=== PATIENT | male | born 1955 | race Two or more races ===

== ENCOUNTER 2020-02-02 20:13 | Inpatient (IN) | payer MEDICARE, OTHER ==
[~2020-02-02] VITALS: Ht 165.1 cm; Wt 55.5 kg
--- NOTE | 2020-02-02 20:15 | NUR ---
RECEIVED PT DIRECT FROM [place] [facility]IA [employer]. UNDER THE CARE OF DR. SIN. DX: COVID PNA, NAUSEA/ VOMITTING. PT IN NO ACUTE DISTRESS. SENIOR CARE ASSESSMENT DONE. PT ALERT , AWAKE , AN ORIENTEDX1. PT RESPOND TO HIS NAME ONLY. OBSERVED PT HAD DOUBLE LUMEN PERMACATH ON HIS RIGHT UPPER CHEST. ADMISSION PROCESS AND CARE PLAN INITIATED. SAFETY AND COMFORT PROVIDED. WILL CONTINUE TO MONITOR.
[2020-02-02 20:30] VITALS: BP 150/87
[2020-02-02] MEDS ORDERED: ONDANSETRON 4 MG/2 ML VIAL IV PRN (21:15)
[2020-02-02] MEDS ORDERED: ACETAMINOPHEN 325 MG TABLET PO PRN (21:15)
[2020-02-02] MEDS ORDERED: ACETAMINOPHEN 650 MG SUPP.RECT RC PRN (21:15)
[2020-02-02] MEDS ORDERED: MORPHINE SULFATE 2 MG/1 ML DISP.SYRIN IV PRN (21:15)
[2020-02-02] MEDS ORDERED: METO-295 PO (21:45)
[2020-02-02] MEDS ORDERED: ATOR80TA PO (21:45)
[2020-02-02] MEDS ORDERED: ASPI-612 PO (21:45)
[2020-02-02] MEDS ORDERED: HYDR100T27 PO (21:45)
[2020-02-02] MEDS ORDERED: NIFE-60 PO (21:45)
[2020-02-02] MEDS ORDERED: INSU100I45 SQ (21:45)
[2020-02-02] MEDS ORDERED: PANT40TA2 PO (21:45)
[2020-02-02] MEDS ORDERED: CALC667T2 PO (21:45)
[2020-02-02] MEDS ORDERED: BACL10TA PO (21:45)
[2020-02-02] MEDS ORDERED: CLON0.1T PO (21:45)
[2020-02-02] MEDS ORDERED: CHOL10002 PO (21:45)
[2020-02-02] MEDS ORDERED: CARV6.252 PO (21:45)
--- NOTE | 2020-02-02 22:15 | NUR ---
DAUGHTER OF PT CALLED TO ASK FOR UPDATE OF HIS FATHER. GAVE UPDATES SINCE DAUGHTER IS THE PERSON TO NOTIFY.
[2020-02-03] VITALS: BP 152/84
--- NOTE | 2020-02-03 01:09 | NUR ---
NOTIFY DR. BERMUDEZ REGARDING TROPONIN RESULT OF .114. NO NEW ORDERS. PT ASYMPTOMATIC. V/S WNL.
[2020-02-03 04:00] VITALS: BP 158/84
--- NOTE | 2020-02-03 06:13 | NUR ---
PT SLEPT COMFORTABLY. PT IN NO ACUTE DISTRESS. NO NAUSEA AND VOMITTING NOTED. PRESCRIBED MEDICATION GIVEN AND PT TOLERATED IT WELL. PT STILL CONFUSED BUT PLEASANT. IV INTACT. SAFETY AND COMFORT PROVIDED. WILL ENDORSE TO INCOMING NURSE FOR CONTINUITY OF CARE.
[2020-02-03 07:51] LABS: BASOPHILS # (AUTO) 0.1 K/uL (0.0-8.0); BASOPHILS % (AUTO) 0.6 % (0.0-2.0); EOSINOPHILS % (AUTO) 0.2 % (0.0-7.0); HEMATOCRIT 42.1 % (36.7-47.1); HEMOGLOBIN 14.6 g/dL (12.5-16.3); LYMPHOCYTES # (AUTO) 0.9 K/uL (20.0-40.0); LYMPHOCYTES % (AUTO) 9.3 % (20.5-51.5); MEAN CORPUSCULAR HEMOGLOBIN 32.7 uug (23.8-33.4); MEAN CORPUSCULAR HGB CONC 35 g/dL (32.5-36.3); MEAN CORPUSCULAR VOLUME 94.7 fL (73.0-96.2); MONOCYTES # (AUTO) 0.8 K/uL (2.0-10.0); MONOCYTES % (AUTO) 8.3 % (0.0-11.0); NEUTROPHILS # (AUTO) 8.3 K/uL (1.8-8.9); NEUTROPHILS % (AUTO) 81.6 % (38.5-71.5); PLATELET COUNT (AUTO) 483 K/uL (152-348); RED BLOOD CELL COUNT(AUTO) 4.45 MIL/uL (4.06-5.63); WHITE BLOOD COUNT (AUTO) 10.2 K/uL (3.6-10.2)
--- NOTE | 2020-02-03 08:00 | NUR ---
received patient in bed, alert x1, able to follow some commands. No signs of distress noted. On Room Air saturating 98%. NO SOB. No complain of Pain or discomfort. kept clean and comfortable. Will continue to monitor.
[2020-02-03] MEDS ORDERED: BACLOFEN 10 MG TABLET PO PRN (08:15)
[2020-02-03 08:22] LABS: BILIRUBIN,TOTAL 0.4 mg/dL (0.2-1.0); MAGNESIUM 2.8 mg/dL (1.8-2.4); PHOSPHOROUS 5.6 mg/dL (2.5-4.9); TOTAL PROTEIN, SERUM 7.9 g/dL (6.4-8.2)
[2020-02-03 08:24] LABS: CREATININE 13.2 mg/dL (0.6-1.3); POTASSIUM 6.9 mmol/L (3.5-5.1)
--- NOTE | 2020-02-03 08:25 | NUR ---
Dr. Adhikari made aware of Abnormal labs: K 6.9, BUN 98, Cr 13.2, Troponin 0.560.
[2020-02-03] MEDS: CHOLECALCIFEROL 1,000 UNIT TABLET PO SCH (08:52)
[2020-02-03] MEDS ORDERED: hydrALAZINE HCL 50 MG TABLET PO SCH (09:00)
[2020-02-03] MEDS ORDERED: PANTOPRAZOLE SODIUM 40 MG VIAL IV SCH (09:00)
[2020-02-03 09:11] LABS: THYROID STIMULATING HORMONE 2.398 mIU/mL (0.358-3.740)
[2020-02-03] MEDS: CARVEDILOL 6.25 MG TABLET PO SCH ×2 (09:12→21:15)
[2020-02-03] MEDS: ASPIRIN EC 325 MG TABLET.DR PO SCH (09:37)
[2020-02-03] MEDS: CLONIDINE HCL 0.1 MG TABLET PO PRN (09:45)
[2020-02-03 10:00] VITALS: BP 149/83
[2020-02-03 10:38] LABS: ABG HCO3 21.5 mmol/L; ABG PCO2 32.9 mmHg (35.0-45.0); ABG PH 7.433 (7.350-7.450); ABG PO2 86.9 mmHg (75.0-100.0); ABG SITE LEFT RADIAL; ABG TOTAL HEMOGLOBIN 13.3 G/dL (13.5-18.0); COHb 1.2 % (0.5-1.5); MetHb 0.3 % (0.0-1.5); O2Hb 95.1 % (94.0-97.0); VENT MODE Room Air
[2020-02-03] MEDS: CALCIUM ACETATE 667 MG CAPSULE PO SCH ×2 (11:05→17:01)
[2020-02-03 11:47] VITALS: BP 175/88
--- NOTE | 2020-02-03 12:40 | NUR ---
Dr. Adhikari made aware of Troponin 0.564.
--- NOTE | 2020-02-03 14:00 | NUR ---
HD Nurse on patients Room, ongoing Dialysis.
[2020-02-03 14:37] VITALS: BP 138/55
--- NOTE | 2020-02-03 16:30 | NUR ---
Patient's Blood Pressure drops to 97/60, No output was taken. Dr. samaniego is aware.
--- NOTE | 2020-02-03 17:00 | NUR ---
current Vital signs 149/51 P 81 R 18 temp 97.9F sat 98% on Room Air.
[2020-02-03] MEDS ORDERED: CLONIDINE-TTS 1 PATCH TD SCH (18:00)
--- NOTE | 2020-02-03 18:02 | NUR ---
Seen by Dr. cooley, patient in bed, able to answer simple question. No signs of distress noted. sat 98% on Room Air, No SOB. No complain of Pain or discomfort. All due medications given as ordered. Kept clean and comfortable. Will endorse to Oncoming Nurse.
--- NOTE | 2020-02-03 19:30 | NUR ---
patient received in bed. aaox2. unable to verbalize needs. v/s stable except for BP. will administer coreg due at 2100. no other s/s of acute distress. fall precautions in place. on RA. will continue to monitor and assess.
[2020-02-03 21:12] VITALS: BP 198/98
[2020-02-04] MEDS: CLONIDINE HCL 0.1 MG TABLET PO PRN ×2 (00:11→23:07)
--- NOTE | 2020-02-04 00:30 | NUR ---
rechecked BP and at 190/85. administered clonidine. will continue to monitor and assess.
--- NOTE | 2020-02-04 01:43 | NUR ---
rechecked BP. WNL. 145/85
[2020-02-04 05:28] VITALS: BP 110/53
--- NOTE | 2020-02-04 05:37 | NUR ---
patient resting comfortably. v/s stable BP WNL at this time. verbal but unable to verbalize needs clearly, patient is confused. no acute distress noted. afebrile. PIV intact and patent. all medications administered without any ASE. fall precautions in place and call light within reach. on RA. will continue to monitor and assess until morning endorsement.
--- NOTE | 2020-02-04 08:00 | NUR ---
Received patient in bed, awake. Alert x 2, No signs of distress noted. No SOB. sat 100% on Room Air. No complain of pain or discomfort. kept clean and comfortable. All needs attended. Will continue to monitor.
[2020-02-04] MEDS: CALCIUM ACETATE 667 MG CAPSULE PO SCH ×3 (08:09→17:13)
[2020-02-04] MEDS: ASPIRIN EC 325 MG TABLET.DR PO SCH (08:10)
[2020-02-04] MEDS: CHOLECALCIFEROL 1,000 UNIT TABLET PO SCH (08:10)
[2020-02-04] MEDS: CARVEDILOL 6.25 MG TABLET PO SCH ×2 (09:00→21:24)
[2020-02-04 09:15] VITALS: BP 105/66
[2020-02-04 10:14] LABS: BASOPHILS # (AUTO) 0.1 K/uL (0.0-8.0); BASOPHILS % (AUTO) 0.9 % (0.0-2.0); EOSINOPHILS # (AUTO) 0.1 K/uL (0.0-0.7); EOSINOPHILS % (AUTO) 1.2 % (0.0-7.0); HEMOGLOBIN 11.3 g/dL (12.5-16.3); LYMPHOCYTES # (AUTO) 0.9 K/uL (20.0-40.0); LYMPHOCYTES % (AUTO) 10.3 % (20.5-51.5); MEAN CORPUSCULAR HEMOGLOBIN 32.3 uug (23.8-33.4); MEAN CORPUSCULAR HGB CONC 34 g/dL (32.5-36.3); MONOCYTES # (AUTO) 0.9 K/uL (2.0-10.0); MONOCYTES % (AUTO) 10.5 % (0.0-11.0); NEUTROPHILS # (AUTO) 6.6 K/uL (1.8-8.9); NEUTROPHILS % (AUTO) 77.1 % (38.5-71.5); PLATELET COUNT (AUTO) 385 K/uL (152-348); RED BLOOD CELL COUNT(AUTO) 3.51 MIL/uL (4.06-5.63); WHITE BLOOD COUNT (AUTO) 8.6 K/uL (3.6-10.2)
[2020-02-04] MEDS: HEPARIN SODIUM,PORCINE 5,000 UNITS/ML VIAL SQ SCH ×2 (11:00→21:21)
[2020-02-04 11:30] VITALS: BP 132/91
--- NOTE | 2020-02-04 17:52 | NUR ---
patient in bed, awake, alert and verbally responsive. On Room Air sat 99%. No signs of distress noted. No SOB. Afebrile. No complain of pain or discomfort. All due medications given as ordered. kept clean and comfortable. Will endorse to Oncoming Nurse.
[2020-02-04 18:17] VITALS: BP 148/69
--- NOTE | 2020-02-04 19:35 | NUR ---
Received patient in bed alert verbally responsive hebrew speaking.On RA saturating well @ 99%, no s/s of distress,[place] cath noted with double lumen on right upper chest in place.Dressing clean and dry.IV site on Left AC 20 g no s/s of infiltration.Complaint with medication.Call light within reach.Will continue to monitor.
[2020-02-05 01:24] VITALS: BP 140/63
[2020-02-05 05:30] VITALS: BP 200/90
--- NOTE | 2020-02-05 06:29 | NUR ---
Patient slept intermittently ,current BP 143/59, 79,18 ,O2 sat 97% on room air.No s/s of distress noted. Denies pain ,no facial grimaces of discomfort.IV site on left AC 20g remain in place.Will endorse to oncoming nurse.
--- NOTE | 2020-02-05 08:00 | NUR ---
Pt confused. Alert to his name. Pt having auditory and visual hallucinations. Pt hearing voices and seeing his son next to him. Fall precaution implemented. Call light is within reach.
[2020-02-05 08:09] LABS: BASOPHILS # (AUTO) 0.1 K/uL (0.0-8.0); BASOPHILS % (AUTO) 0.7 % (0.0-2.0); EOSINOPHILS # (AUTO) 0.2 K/uL (0.0-0.7); EOSINOPHILS % (AUTO) 1.6 % (0.0-7.0); HEMOGLOBIN 12.1 g/dL (12.5-16.3); LYMPHOCYTES # (AUTO) 1.2 K/uL (20.0-40.0); MEAN CORPUSCULAR HEMOGLOBIN 31.8 uug (23.8-33.4); MEAN CORPUSCULAR HGB CONC 34 g/dL (32.5-36.3); MEAN CORPUSCULAR VOLUME 94.6 fL (73.0-96.2); MONOCYTES # (AUTO) 0.9 K/uL (2.0-10.0); MONOCYTES % (AUTO) 8.9 % (0.0-11.0); NEUTROPHILS # (AUTO) 7.8 K/uL (1.8-8.9); NEUTROPHILS % (AUTO) 76.8 % (38.5-71.5); PLATELET COUNT (AUTO) 360 K/uL (152-348); RED BLOOD CELL COUNT(AUTO) 3.81 MIL/uL (4.06-5.63); WHITE BLOOD COUNT (AUTO) 10.2 K/uL (3.6-10.2)
[2020-02-05] MEDS: ASPIRIN EC 325 MG TABLET.DR PO SCH (08:36)
[2020-02-05] MEDS: PANTOPRAZOLE SODIUM 40 MG TABLET.DR PO SCH (08:36)
[2020-02-05] MEDS: CALCIUM ACETATE 667 MG CAPSULE PO SCH ×3 (08:36→17:46)
[2020-02-05] MEDS: CHOLECALCIFEROL 1,000 UNIT TABLET PO SCH (08:36)
[2020-02-05] MEDS: HEPARIN SODIUM,PORCINE 5,000 UNITS/ML VIAL SQ SCH ×2 (08:38→20:20)
[2020-02-05 08:40] LABS: BILIRUBIN,TOTAL 0.4 mg/dL (0.2-1.0); MAGNESIUM 2.7 mg/dL (1.8-2.4); PHOSPHOROUS 4.2 mg/dL (2.5-4.9); POTASSIUM 5.1 mmol/L (3.5-5.1); TOTAL PROTEIN, SERUM 7.1 g/dL (6.4-8.2)
[2020-02-05 08:43] LABS: CREATININE 12.1 mg/dL (0.6-1.3)
[2020-02-05] MEDS: CARVEDILOL 6.25 MG TABLET PO SCH (08:52)
[2020-02-05] MEDS ORDERED: CARVEDILOL 6.25 MG TABLET PO ONE (10:50)
[2020-02-05 12:00] VITALS: BP 120/81
--- NOTE | 2020-02-05 14:00 | NUR ---
Dr cooley notified pt having auditory and visual hallucination. Pt talking to himself and seeing "his son next to him" CT head to be ordered by DR COOLEY.
[2020-02-05] MEDS: CLONIDINE HCL 0.1 MG TABLET PO PRN (15:24)
[2020-02-05 15:47] VITALS: BP 128/58
[2020-02-05 17:53] VITALS: BP 151/77
[2020-02-05] MEDS: CARVEDILOL 12.5 MG TABLET PO SCH ×2 (17:53→20:19)
--- NOTE | 2020-02-05 17:55 | NUR ---
Current b/p 151/77 hr 72 called [facility] advise to hold coreg. [facility] states he will come to see pt as soon as possible tonight. PRN Clonodine. bp med effective. .
--- NOTE | 2020-02-05 18:15 | NUR ---
Charge nurse spoke with daughter Georgiana regarding f/u with covid result from [place] to be faxed here at [facility]. No faxed received. F/u call made to radiology secondary to CT HEAD still not done. Notified radiology that HD RN will be here for dialysis for patient. Pt is in no acute distress. Call light is within reach. NO SOB noted this shift. R/A 96%.
[2020-02-05 20:31] VITALS: BP 148/86
[2020-02-06 06:50] VITALS: BP 180/67
[2020-02-06] MEDS: PANTOPRAZOLE SODIUM 40 MG TABLET.DR PO SCH (06:58)
[2020-02-06 06:59] LABS: BASOPHILS # (AUTO) 0.1 K/uL (0.0-8.0); BASOPHILS % (AUTO) 0.8 % (0.0-2.0); EOSINOPHILS # (AUTO) 0.2 K/uL (0.0-0.7); EOSINOPHILS % (AUTO) 1.5 % (0.0-7.0); HEMATOCRIT 30.1 % (36.7-47.1); HEMOGLOBIN 10.4 g/dL (12.5-16.3); LYMPHOCYTES # (AUTO) 1.5 K/uL (20.0-40.0); LYMPHOCYTES % (AUTO) 12.4 % (20.5-51.5); MEAN CORPUSCULAR HEMOGLOBIN 32.7 uug (23.8-33.4); MEAN CORPUSCULAR HGB CONC 35 g/dL (32.5-36.3); MONOCYTES # (AUTO) 0.7 K/uL (2.0-10.0); MONOCYTES % (AUTO) 5.8 % (0.0-11.0); NEUTROPHILS # (AUTO) 9.4 K/uL (1.8-8.9); NEUTROPHILS % (AUTO) 79.5 % (38.5-71.5); PLATELET COUNT (AUTO) 323 K/uL (152-348); WHITE BLOOD COUNT (AUTO) 11.8 K/uL (3.6-10.2)
--- NOTE | 2020-02-06 07:00 | NUR ---
RECEIVED WITH ONGOING HEMODIALYSIS AT BEDSIDE. NO SS OF SOB OR C/O PAIN. NOTED PATIENT CONSTANTLY TALKING RAISING RIGHT ARM AND FACE ON THE CEILING. ANSWERS SIMPLE QUESTIONS IN DANISH. V/S STABLE
[2020-02-06 07:10] LABS: BILIRUBIN,TOTAL 0.4 mg/dL (0.2-1.0); MAGNESIUM 2.3 mg/dL (1.8-2.4); PHOSPHOROUS 3.8 mg/dL (2.5-4.9); POTASSIUM 5.3 mmol/L (3.5-5.1); TOTAL PROTEIN, SERUM 6.3 g/dL (6.4-8.2)
[2020-02-06 07:21] LABS: CREATININE 13.2 mg/dL (0.6-1.3)
[2020-02-06] MEDS: ASPIRIN EC 325 MG TABLET.DR PO SCH (08:31)
[2020-02-06] MEDS: CARVEDILOL 12.5 MG TABLET PO SCH ×2 (08:32→17:15)
[2020-02-06] MEDS: CHOLECALCIFEROL 1,000 UNIT TABLET PO SCH (08:32)
[2020-02-06] MEDS: CALCIUM ACETATE 667 MG CAPSULE PO SCH ×3 (08:32→17:15)
[2020-02-06] MEDS: HEPARIN SODIUM,PORCINE 5,000 UNITS/ML VIAL SQ SCH ×2 (08:34→21:14)
--- NOTE | 2020-02-06 09:00 | NUR ---
DIALYSIS COMPLETED AND TOLERATED FAIRLY. REFUSED TO EAT BREAKFAST BUT ABLE TO TAKE MEDS
--- NOTE | 2020-02-06 10:59 | NUR ---
SEEN BY DR PADILLA FOR PULMONARY FOLLOW-UP, RECOMMENDING ADVANCE DIET TOLERATED IF NO VOMITING.
[2020-02-06 11:30] VITALS: BP 153/83
--- NOTE | 2020-02-06 11:43 | NUR ---
PATIENT CONSTANTLY SCREAMING, TALKING INCOHERENTLY AND CONFUSED. DR VEGA IN AND MADE AWARE. SEE NEW ORDERS. PATIENT WILL START ON SOFT DIET TOLERATED
[2020-02-06] MEDS: QUETIAPINE FUMARATE 25 MG TABLET PO PRN (12:19)
[2020-02-06 16:00] VITALS: BP 161/77
[2020-02-06 20:23] VITALS: BP 163/76
[2020-02-06] MEDS: CLONIDINE HCL 0.1 MG TABLET PO PRN (21:15)
[2020-02-07] MEDS: CLONIDINE HCL 0.1 MG TABLET PO PRN ×3 (05:22→23:11)
--- NOTE | 2020-02-07 05:32 | NUR ---
Blood pressure 159/65. PRN clonidine given as per MD order. Will continue to monitor patient.
[2020-02-07] MEDS: PANTOPRAZOLE SODIUM 40 MG TABLET.DR PO SCH (06:02)
--- NOTE | 2020-02-07 06:19 | NUR ---
Blood pressure rechecked and is 148/63. Patient shows no signs or symptoms of distress at this time. Patient to be endorsed to day shift nurse in stable condition.
[2020-02-07 06:48] VITALS: BP 159/65
[2020-02-07] MEDS: CALCIUM ACETATE 667 MG CAPSULE PO SCH ×3 (09:02→18:19)
[2020-02-07] MEDS: CHOLECALCIFEROL 1,000 UNIT TABLET PO SCH (09:02)
[2020-02-07] MEDS: ASPIRIN EC 325 MG TABLET.DR PO SCH (09:02)
[2020-02-07] MEDS: CARVEDILOL 12.5 MG TABLET PO SCH ×2 (09:02→18:19)
[2020-02-07] MEDS: HEPARIN SODIUM,PORCINE 5,000 UNITS/ML VIAL SQ SCH ×2 (09:13→21:08)
[2020-02-07 11:40] VITALS: BP 162/61
--- NOTE | 2020-02-07 15:02 | NUR ---
Received patient awake and oriented x 3, guamanian speaking. Patient ongoing room air with 97% oxygen saturation. Tolerated well. no cough noted. Afebrile-97.2'F. Patient BUN 13. 2 critical high informed MD Pena. Seen and examined by MD Drake with no new order. Patient ongoing dialysis. not in distress. no complaint of pain/discomfort noted. will continue monitor
[2020-02-07 16:00] VITALS: BP 181/77
[2020-02-07 20:30] VITALS: BP_SYST 144; BP_SYST 188; BP_DIAS 58
[2020-02-07] MEDS: QUETIAPINE FUMARATE 25 MG TABLET PO PRN (21:02)
--- NOTE | 2020-02-08 00:55 | NUR ---
patient agitated, unable to sleep and confused. new orders received from cassidy townsend np for ativan IVP 1mg x1 only. will administer.
[2020-02-08] MEDS ORDERED: LORAZEPAM 2 MG/1 ML VIAL IV ONE (01:00)
--- NOTE | 2020-02-08 05:01 | NUR ---
patient slept intermittently. aaox1 and confused. patient talks to self with no one in the room. no s/s of acute distress and v/s stable throughout shift. on RA. PIV intact and patent. all medications administered without any ASE. safety precautions in place and call light within reach. will continue to monitor and assess patient until morning endorsement.
[2020-02-08] MEDS: CLONIDINE HCL 0.1 MG TABLET PO PRN ×3 (05:28→21:00)
[2020-02-08] MEDS: PANTOPRAZOLE SODIUM 40 MG TABLET.DR PO SCH (06:12)
[2020-02-08 06:38] VITALS: BP 177/75
[2020-02-08 06:47] LABS: BASOPHILS # (AUTO) 0.1 K/uL (0.0-8.0); BASOPHILS % (AUTO) 1.1 % (0.0-2.0); EOSINOPHILS # (AUTO) 0.2 K/uL (0.0-0.7); EOSINOPHILS % (AUTO) 1.9 % (0.0-7.0); HEMATOCRIT 25.7 % (36.7-47.1); HEMOGLOBIN 8.8 g/dL (12.5-16.3); LYMPHOCYTES # (AUTO) 1.2 K/uL (20.0-40.0); LYMPHOCYTES % (AUTO) 12.8 % (20.5-51.5); MEAN CORPUSCULAR HEMOGLOBIN 32.4 uug (23.8-33.4); MEAN CORPUSCULAR HGB CONC 34 g/dL (32.5-36.3); MEAN CORPUSCULAR VOLUME 94.2 fL (73.0-96.2); MONOCYTES # (AUTO) 0.6 K/uL (2.0-10.0); MONOCYTES % (AUTO) 6.2 % (0.0-11.0); NEUTROPHILS # (AUTO) 7.5 K/uL (1.8-8.9); PLATELET COUNT (AUTO) 236 K/uL (152-348); RED BLOOD CELL COUNT(AUTO) 2.73 MIL/uL (4.06-5.63); WHITE BLOOD COUNT (AUTO) 9.7 K/uL (3.6-10.2)
[2020-02-08 06:55] LABS: POTASSIUM 5.7 mmol/L (3.5-5.1)
--- NOTE | 2020-02-08 08:00 | NUR ---
pt. resting in bed oriented x2. pt. having dialysis right now. IV in L AC 20 gauge intact patent saline lock. R Upper chest perma cath. pt. denies pain/ discomfort/ sob at this time. safety measures in place. pt. on contact and droplet isolation for positive covid. call light within reach. will continue to monitor pt.
[2020-02-08] MEDS: CHOLECALCIFEROL 1,000 UNIT TABLET PO SCH (09:28)
[2020-02-08] MEDS: CALCIUM ACETATE 667 MG CAPSULE PO SCH ×3 (09:29→18:28)
[2020-02-08] MEDS: HEPARIN SODIUM,PORCINE 5,000 UNITS/ML VIAL SQ SCH ×2 (09:31→20:39)
[2020-02-08] MEDS: ASPIRIN EC 325 MG TABLET.DR PO SCH (09:31)
[2020-02-08] MEDS: CARVEDILOL 12.5 MG TABLET PO SCH ×2 (09:35→18:47)
[2020-02-08 09:40] VITALS: BP 130/54
[2020-02-08 15:19] VITALS: BP 179/70
--- NOTE | 2020-02-08 19:30 | NUR ---
Received pt lying in bed watching TV. No signs or symptoms of distress noted at this time. Patient denies SOB and pain. Left AC patent and intact. Right upper perma cath. pt in isolation room for positive COVID. Safety measures in place and will continue to monitor.
[2020-02-08 20:15] VITALS: BP 175/74
[2020-02-09] VITALS: BP 193/70
[2020-02-09] MEDS ORDERED: CLONIDINE HCL 0.1 MG TABLET PO PRN (00:30)
[2020-02-09 03:22] VITALS: BP 159/65
[2020-02-09 04:25] VITALS: BP 164/65
[2020-02-09] MEDS: PANTOPRAZOLE SODIUM 40 MG TABLET.DR PO SCH (06:00)
[2020-02-09 06:48] LABS: BASOPHILS # (AUTO) 0.1 K/uL (0.0-8.0); EOSINOPHILS # (AUTO) 0.1 K/uL (0.0-0.7); EOSINOPHILS % (AUTO) 1.1 % (0.0-7.0); HEMATOCRIT 25.8 % (36.7-47.1); LYMPHOCYTES # (AUTO) 1.4 K/uL (20.0-40.0); LYMPHOCYTES % (AUTO) 14.4 % (20.5-51.5); MEAN CORPUSCULAR HEMOGLOBIN 32.5 uug (23.8-33.4); MEAN CORPUSCULAR HGB CONC 35 g/dL (32.5-36.3); MEAN CORPUSCULAR VOLUME 93.8 fL (73.0-96.2); MONOCYTES # (AUTO) 0.8 K/uL (2.0-10.0); MONOCYTES % (AUTO) 7.7 % (0.0-11.0); NEUTROPHILS # (AUTO) 7.4 K/uL (1.8-8.9); NEUTROPHILS % (AUTO) 75.8 % (38.5-71.5); PLATELET COUNT (AUTO) 229 K/uL (152-348); RED BLOOD CELL COUNT(AUTO) 2.76 MIL/uL (4.06-5.63); WHITE BLOOD COUNT (AUTO) 9.8 K/uL (3.6-10.2)
[2020-02-09 07:00] LABS: CREATININE 8.3 mg/dL (0.6-1.3)
[2020-02-09] MEDS: CARVEDILOL 12.5 MG TABLET PO SCH (07:59)
[2020-02-09 08:00] VITALS: BP 112/56
[2020-02-09] MEDS: CALCIUM ACETATE 667 MG CAPSULE PO SCH ×2 (08:00→11:26)
--- NOTE | 2020-02-09 08:00 | NUR ---
Received patient in bed, awake, alert and verbally responsive. No signs of distress noted. No SOB. sat 99% on Room Air. No complain of Pain or discomfort. kept clean and comfortable. Proper PPE strictly Observed for covid19 +. Will continue to monitor.
[2020-02-09] MEDS: CHOLECALCIFEROL 1,000 UNIT TABLET PO SCH (08:01)
[2020-02-09] MEDS: ASPIRIN EC 325 MG TABLET.DR PO SCH (08:01)
[2020-02-09] MEDS: HEPARIN SODIUM,PORCINE 5,000 UNITS/ML VIAL SQ SCH (08:13)
[2020-02-09] MEDS ORDERED: CARV12.52 PO (10:07)
--- NOTE | 2020-02-09 12:25 | NUR ---
Patient is awake, alert and verbally responsive. No signs of distress noted. No SOB. No complain of Pain or discomfort. remains covid +, Patient with Order to discharge to [facility], spoke with Omar RN and endorsed Accordingly. All discharge Instructions given to patient and verbalized understanding. All belongings was signed and sent with patient. removed IV site and wrist band. patient was picked up by 2 EMT in stable condition.
== END 2020-02-09 12:25 | DRG 177 ==
LOC: TELE-TD3 20:13 → TELE3 20:39 → MEDSURG3 02-03 17:41
PROVIDERS: ADMIT Internal Medicine; ATTEND Family Medicine
PROC: 5A1D70Z Performance of Urinary Filtration, Intermittent, Less than 6 Hours Per Day (ICD-10-PCS; principal; 2020-02-03)
DX: U07.1 COVID-19 (principal); J69.0 Pneumonitis due to inhalation of food and vomit; G92 Toxic encephalopathy; J12.89 Other viral pneumonia; E43 Unspecified severe protein-calorie malnutrition; N18.6 End stage renal disease; I21.A1 Myocardial infarction type 2; I12.0 Hypertensive chronic kidney disease with stage 5 chronic kidney disease or end stage renal disease; D68.69 Other thrombophilia; E11.22 Type 2 diabetes mellitus with diabetic chronic kidney disease; Z99.2 Dependence on renal dialysis; E88.09 Other disorders of plasma-protein metabolism, not elsewhere classified; D63.8 Anemia in other chronic diseases classified elsewhere; E87.5 Hyperkalemia; F17.210 Nicotine dependence, cigarettes, uncomplicated; K21.9 Gastro-esophageal reflux disease without esophagitis; N40.0 Benign prostatic hyperplasia without lower urinary tract symptoms; Z68.20 Body mass index [BMI] 20.0-20.9, adult; R53.1 Weakness; N25.0 Renal osteodystrophy; I70.0 Atherosclerosis of aorta; Z79.4 Long term (current) use of insulin; R40.2363 Coma scale, best motor response, obeys commands, at hospital admission; R40.2143 Coma scale, eyes open, spontaneous, at hospital admission; R40.2243 Coma scale, best verbal response, confused conversation, at hospital admission
CPT/HCPCS: 36415; 36600; 70030-TC; 70450; 71045; 82803; 83550; 83735; 84100; 84443; 85025; 85610; 86140; 86803; 87040; 87806; 90937; C9113; G0378; J1644; J2060; J7030; U0003-CS